=== PATIENT | male | born 1970 | race Caucasian/White ===

== ENCOUNTER 2018-04-15 10:34 | Emergency (ER) | payer OTHER ==
[~2018-04-15] VITALS: Ht 180.3 cm; Wt 91.8 kg
[2018-04-15 12:20] VITALS: BP 121/70
== END 2018-04-15 12:20 | disposition home or self-care (01) | DRG 156 ==
LOC: ED 10:34
DX: S01.311A Laceration without foreign body of right ear, initial encounter (principal); Y04.2XXA Assault by strike against or bumped into by another person, initial encounter; Y92.149 Unspecified place in prison as the place of occurrence of the external cause; Y99.0 Civilian activity done for income or pay